=== PATIENT | male | born 1990 ===

== ENCOUNTER 2018-08-20 15:43 | Emergency (ER) | payer MEDICAID ==
[2018-08-20 16:37] VITALS: RESP 18; O2SAT 99
[2018-08-20] MEDS ORDERED: Oxycodone/Acetaminophen 5/325 mg Tab PO STA (17:41)
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
[2018-08-20 19:49] VITALS: BP 126/72; PULSE 72; TEMP 98.6
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
== END 2018-08-20 19:49 | disposition home or self-care (01) ==
LOC: ED 15:43
DX: S62.316A Displaced fracture of base of fifth metacarpal bone, right hand, initial encounter for closed fracture (principal); Y04.0XXA Assault by unarmed brawl or fight, initial encounter
CPT/HCPCS: 29125; 73110; 73130; 96372; 99285; J1885

== ENCOUNTER 2018-10-30 07:50 | Inpatient (IN) | payer MEDICAID ==
[2018-10-30 08:06] VITALS: BMI 25.4
--- NOTE | 2018-10-30 08:46 | ED PDOC ---
Arrival/HPI - General Chief Complaint: Abdominal Pain Time Seen by Provider: 10/30/18 08:08 Historian: Patient - History of Present Illness Narrative History of Present Illness (Text): 10/30/18 08:43 A 28 year old male presents to the emergency department for evaluation of bilateral side pain, abdominal pain, and low back pain. The patient notes that he has been seen by his PMD for his abdominal pain. He notes that he has been vomiting and having bright, red blood in stools. He is a smoker and drinks alcohol daily. The patient denies fevers, chills, headache, dizziness, chest pain, shortness of breath, dyspnea on exertion, cough, nausea, diarrhea, neck pain, urinary changes, or any other complaint. Time/Duration: Other (Today) Symptom Onset: Gradual Symptom Course: Unchanged Activities at Onset: Rest, Light Context: Home Past Medical History - Provider Review Nursing Documentation Reviewed: Yes - Infectious Disease Hx of Infectious Diseases: None - Cardiac Hx Cardiac Disorders: No - Pulmonary Hx Asthma: Yes - Psychiatric Hx Anxiety: Yes Hx Bipolar Disorder: Yes Hx Post Traumatic Stress Disorder: Yes Hx Schizophrenia: Yes Hx Substance Use: No Other/Comment: anti-social - Anesthesia Hx Anesthesia: No Family/Social History - Physician Review Nursing Documentation Reviewed: Yes Family/Social History: No Known Family HX Smoking Status: Current Some Days Smoker Hx Alcohol Use: Yes Hx Substance Use: No Allergies/Home Meds Allergies/Adverse Reactions: Allergies mayonnaise Allergy (Verified 10/30/18 08:07) ANAPHYLAXIS Penicillins Allergy (Verified 08/20/18 16:37) RASH seafoo Allergy (Uncoded 10/30/18 08:07) ANAPHYLAXIS Home Medications: Home Meds Medication Instructions Recorded Confirmed Ibuprofen [Motrin] 200 mg PO TID 10/30/18 10/30/18 buPROPion XL [Wellbutrin XL] 300 mg PO DAILY 10/30/18 10/30/18 Review of Systems - Physician Review All systems were reviewed & negative as marked: Yes - Review of Systems Constitutional: absent: Fevers Respiratory: absent: SOB, Cough Cardiovascular: absent: Chest Pain, ESPOSITO Gastrointestinal: Abdominal Pain, Vomiting, Hematochezia. absent: Diarrhea, Nausea Genitourinary Male: absent: Urinary Output Changes Musculoskeletal: Back Pain (and bilateral side pain). absent: Neck Pain Neurological: absent: Headache, Dizziness Physical Exam - Physical Exam Narrative Physical Exam (Text): 10/30/18 08:47 Gen: VS reviewed, alert, well developed, well nourished, mild distress. Intoxicated. ENT: normal pharynx. Eye: EOMI, PERRL. Neck: no JVD, supple, no adenopathy. CV: regular rate, regular rhythm, no rubs, no murmur, no gallops, S1, S2, pulses equal and strong. Pulm: no distress, clear to auscultation, no wheeze, no rhonchi, breath sounds equal, no rales. Abd: soft, nontender, no guarding, no rebound, no rigidity, normal bowel sounds. Ext: no edema. Back: Diffuse lower back tenderness. Skin: good color, no rash, no cyanosis. Psych: responds appropriately to questions, normal affect. Neuro: oriented x 3, CN2-12 intact grossly, motor intact, sensation intact. Vital Signs Reviewed: Yes Vital Signs Temp Pulse Resp BP Pulse Ox 10/30/18 07:50 99.7 F H 91 H 20 144/95 H 98 Temperature: Febrile Blood Pressure: Hypertensive Pulse: Tachycardic Respiratory Rate: Normal Appearance: Positive for: Well-Appearing, Non-Toxic, Comfortable Pain Distress: None Mental Status: Positive for: Alert and Oriented X 3 Medical Decision Making ED Course and Treatment: 10/30/18 08:48 Impression: A 28 year old male presents to the emergency department with a complaint of lower back, bilateral side, and abdominal pain. Plan: -- EKG -- Chest X-ray -- Urinalysis -- Gallbladder/ Pancreas Ultrasound -- Labs -- Reassess and disposition Prior Visits: Notes and results from previous visits were reviewed. Progress Notes: 10/30/18 11:[address] woodward to the hospitalist service. patient to be admitted for alcoholic pancreatitis. patient reports tremor withdrawal symptoms in the past but no seizures. CIWA score = 0. - Lab Interpretations I have reviewed the lab results: Yes - RAD Interpretation Narrative RAD Interpretations (Text): GALLBLADDER & PANCREAS ULTRASOUND Date Signed: 10/30/18 1041 Signed By: Kaila Mena MD IMPRESSION: Echogenic liver may be seen in setting of hepatic parenchymal disease or fatty infiltration. CHEST TWO VIEWS (PA/LAT) Date Signed: 10/30/18 1109 Signed By: Kaila Mena MD IMPRESSION: No focal consolidation. - EKG Interpretation EKG Interpretation (Text): 10/30/18 10:10 0906: nsr at 88 bpm, nml qrs, nml axis, prolonged qt Interpreted by ED Physician: Yes Type: 12 lead EKG - Scribe Statement The provider has reviewed the documentation as recorded by the Scribe Lyric Trujillo Provider Scribe Attestation: All medical record entries made by the Scribe were at my direction and personally dictated by me. I have reviewed the chart and agree that the record accurately reflects my personal performance of the history, physical exam, medical decision making, and the department course for this patient. I have also personally directed, reviewed, and agree with the discharge instructions and disposition. Disposition/Present on Arrival - Present on Arrival Any Indicators Present on Arrival: No History of DVT/PE: No History of Uncontrolled Diabetes: No Urinary Catheter: No History of Decub. Ulcer: No History Surgical Site Infection Following: None - Disposition Have Diagnosis and Disposition been Completed?: Yes Diagnosis: Alcoholic pancreatitis Disposition: HOSPITALIZED Disposition Time: 11:36 Patient Plan: Admission Condition: STABLE Forms: [employer] ([place])
[2018-10-30 09:03] LABS: BASO # 0.03 K/mm3 (0.0-2.0); BASO % 0.2 % (0.0-3.0); EOS # 0.1 (0.0-0.7); EOS % 0.9 % (1.5-5.0); GRAN # 11.5 (1.4-6.5); GRAN % 77.9 % (50.0-68.0); HEMOGLOBIN 14.7 g/dL (14.0-18.0); LYMPH # 1.1 (1.2-3.4); LYMPH % 7.7 % (22.0-35.0); MEAN CELL VOLUME 95.7 fl (80.0-105.0); MEAN CORPUSCULAR HEMOGLOBIN 33.6 pg (25.0-35.0); MEAN CORPUSCULAR HGB CONC 35.1 g/dl (31.0-37.0); MEAN PLATELET VOLUME 9.3 fl (7.0-11.0); MONO % 13.3 % (1.0-6.0); RBC 4.38 10^6/uL (3.5-6.1); RED CELL DISTRIBUTION WIDTH 12.9 % (11.5-14.5); WHITE BLOOD COUNT 14.8 10^3/uL (4.5-11.0)
[2018-10-30 09:12] LABS: INR 1.16; PARTIAL THROMBOPLASTIN TIME 29.2 Seconds (25.1-36.5); PROTHROMBIN TIME 13.4 SECONDS (9.4-12.5)
[2018-10-30 09:16] LABS: ALBUMIN 4.5 g/dL (3.0-4.8); ALT/SGPT 112 U/L (7-56); AST/SGOT 193 U/L (17-59); BLOOD UREA NITROGEN 4 mg/dL (7-21); CALCIUM 9.7 mg/dL (8.4-10.5); GFR NON-AFRICAN AMERICAN > 60
[2018-10-30 09:18] LABS: URINE BILIRUBIN NEGATIVE (NEGATIVE); URINE BLOOD NEGATIVE (NEGATIVE); URINE GLUCOSE (UA) NEGATIVE (NEGATIVE); URINE LEUKOCYTE ESTERASE NEGATIVE Leu/uL (NEGATIVE); URINE PROTEIN TRACE mg/dL (<30 mg/dL)
[2018-10-30 09:19] LABS: URINE APPEARANCE CLEAR (CLEAR); URINE COLOR YELLOW (YELLOW)
[2018-10-30 09:30] LABS: BARBITURATES, UR NEGATIVE (NEGATIVE); BENZODIAZEPINES, UR NEGATIVE (NEGATIVE); OPIATES, UR NEGATIVE (NEGATIVE); PHENCYCLIDINE, UR NEGATIVE (NEGATIVE)
[2018-10-30 09:44] LABS: URINE BACTERIA SMALL (NEG); URINE RBC NEGATIVE /hpf (0-2); URINE WBC 0 - 2 /hpf (0-6)
[2018-10-30 10:11] LABS: LIPASE 5385 U/L (23-300)
[2018-10-30] MEDS ORDERED: Multivitamin (MVI) 10 ML, Thiamine 100 MG, Folic Acid 1 MG in Sodium Chloride 0.9% 1,00... IV ONE (10:11)
--- NOTE | 2018-10-30 10:45 | US ---
Date of service: 10/30/2018 HISTORY: pain, ?gallstones COMPARISON: None available. TECHNIQUE: Sonographic evaluation of the right upper quadrant of the abdomen. FINDINGS: LIVER: Measures 17.6 cm in length. Echogenic liver may be seen in setting of hepatic parenchymal disease or fatty infiltration. No focal hepatic mass identified. The main portal vein appears patent with normal directional flow. No intrahepatic bile duct dilatation. GALLBLADDER: No gallstones. No gallbladder wall thickening or pericholecystic edema. Negative sonographic Dupont's sign as assessed by the emergency medicine physician. COMMON BILE DUCT: Measures 4 mm. PANCREAS: Not well-visualized. RIGHT KIDNEY: Measures approximately 13.4 x 5.2 x 6.1 cm. No obstructing calculus or hydronephrosis identified. AORTA: Limited visualization appears grossly unremarkable. IVC: Limited visualization appears grossly unremarkable. OTHER FINDINGS: None . IMPRESSION: Echogenic liver may be seen in setting of hepatic parenchymal disease or fatty infiltration.
--- NOTE | 2018-10-30 11:13 | RAD ---
HISTORY: pneumonia COMPARISON: None available. TECHNIQUE: Chest PA and lateral FINDINGS: LUNGS: No focal consolidation. Please note that chest x-ray has limited sensitivity for the detection of pulmonary masses. PLEURA: No significant pleural effusion identified. No definite pneumothorax . CARDIOVASCULAR: Heart size appears within normal limits. No significant atherosclerotic calcifications present. OSSEOUS STRUCTURES: Degenerative changes of the spine. VISUALIZED UPPER ABDOMEN: Elevation of the right hemidiaphragm. OTHER FINDINGS: None. IMPRESSION: No focal consolidation.
[2018-10-30] MEDS ORDERED: Magnesium Sulfate 2 gm/50 ml 2 GM/50 ML BAG IVPB ONE (11:43)
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
[2018-10-30] MEDS: buPROPion 300 mg/24 Hours XL Tab PO SCH (14:30)
[2018-10-30] MEDS: Pantoprazole 40 mg EC Tab PO SCH (16:16)
--- NOTE | 2018-10-30 18:35 | CARD ---
APPROVED REPORT Date of service: 10/30/2018 EKG Measurement Heart [id number] <Conclusion> Normal sinus rhythm Normal Electrocardiogram
[2018-10-30] MEDS: Morphine 2 mg/ml ISec IVP PRN ×2 (19:03→23:20)
[2018-10-31] MEDS: Morphine 2 mg/ml ISec IVP PRN (03:17)
[2018-10-31] MEDS: Pantoprazole 40 mg EC Tab PO SCH ×2 (06:23→15:11)
[2018-10-31 06:28] LABS: BASO # 0.05 K/mm3 (0.0-2.0); BASO % 0.5 % (0.0-3.0); EOS # 0.5 (0.0-0.7); EOS % 4.8 % (1.5-5.0); GRAN # 7.18 (1.4-6.5); GRAN % 73.3 % (50.0-68.0); HEMOGLOBIN 13.5 g/dL (14.0-18.0); LYMPH # 1.1 (1.2-3.4); LYMPH % 11.5 % (22.0-35.0); MEAN CELL VOLUME 97.8 fl (80.0-105.0); MEAN CORPUSCULAR HGB CONC 33.8 g/dl (31.0-37.0); MEAN PLATELET VOLUME 9.5 fl (7.0-11.0); MONO % 9.9 % (1.0-6.0); RBC 4.09 10^6/uL (3.5-6.1); RED CELL DISTRIBUTION WIDTH 13.3 % (11.5-14.5); WHITE BLOOD COUNT 9.8 10^3/uL (4.5-11.0)
[2018-10-31 07:19] LABS: ALBUMIN 3.8 g/dL (3.0-4.8); ALT/SGPT 92 U/L (7-56); AST/SGOT 125 U/L (17-59); BLOOD UREA NITROGEN 4 mg/dL (7-21); CALCIUM 9.2 mg/dL (8.4-10.5); GFR NON-AFRICAN AMERICAN > 60
[2018-10-31] MEDS ORDERED: Potassium Chloride 20 mEq ER Tab PO STA (08:19)
[2018-10-31] MEDS: buPROPion 300 mg/24 Hours XL Tab PO SCH (09:02)
--- NOTE | 2018-10-31 13:12 | CP.PCM.PN ---
<Gina Mehta - Last Filed: 10/31/18 13:13> Subjective - Date & Time of Evaluation Date of Evaluation: 10/31/18 Time of Evaluation: 10:10 - Subjective Subjective: Gina Mehta PGY1 Hospital Progress Note Patient seen and examined at bedside this morning. No acute events overnight. Patient states he doesn't like hospital food provided to him and is requesting alternatives. Patient will be advanced to full liquid diet this afternoon and further advanced to soft diet tonight if tolerating well. Denies any complaints at this time. Objective - Vital Signs/Intake and Output Vital Signs (last 24 hours): Temp Pulse Resp BP Pulse Ox 98.4 F 80 18 135/99 H 96 10/31/18 08:07 10/31/18 10:00 10/31/18 08:07 10/31/18 08:07 10/31/18 08:07 - Medications Medications: Current Medications Bupropion HCl (Wellbutrin Xl) 300 mg PO DAILY [facility] Last Admin: 10/31/18 09:02 Dose: 300 mg Lorazepam (Ativan) 1 mg IVP Q2H PRN; Protocol PRN Reason: Anxiety Last Admin: 10/31/18 13:01 Dose: 1 mg Lorazepam (Ativan) 1 mg IVP Q6H LING; Protocol Last Admin: 10/31/18 09:00 Dose: 1 mg Morphine Sulfate (Morphine) 2 mg IVP Q4H PRN PRN Reason: Pain, severe (8-10) Last Admin: 10/31/18 03:17 Dose: 2 mg Nicotine (Nicoderm Cq) 1 patch TD DAILY [facility] Last Admin: 10/31/18 09:09 Dose: Not Given Nystatin (Nystatin Oral Susp) 5 ml PO QID LING Ondansetron HCl (Zofran Inj) 4 mg IVP Q6H PRN PRN Reason: Nausea/Vomiting Pantoprazole Sodium (Protonix Ec Tab) 40 mg PO 0600,1600 [facility] Last Admin: 10/31/18 06:23 Dose: 40 mg Quetiapine Fumarate (Seroquel) 100 mg PO HS LING; Protocol Last Admin: 10/30/18 21:22 Dose: 100 mg - Labs Labs: 10/31/18 05:45 10/31/18 05:45 PT 13.4 SECONDS (9.4-12.5) H 10/30/18 08:50 INR 1.16 10/30/18 08:50 APTT 29.2 Seconds (25.1-36.5) 10/30/18 08:50 - Constitutional Appears: No Acute Distress - Head Exam Head Exam: ATRAUMATIC, NORMAL INSPECTION - Eye Exam Eye Exam: EOMI Pupil Exam: PERRL - ENT Exam ENT Exam: Mucous Membranes Moist Additional comments: white plaques in oral mucosa - Neck Exam Neck Exam: Normal Inspection - Respiratory Exam Respiratory Exam: Clear to Ausculation Bilateral. absent: Accessory Muscle Use, Wheezes, Respiratory Distress - Cardiovascular Exam Cardiovascular Exam: REGULAR RHYTHM, +S1, +S2. absent: Tachycardia - GI/Abdominal Exam GI & Abdominal Exam: Soft, Normal Bowel Sounds. absent: Firm, Guarding Additional comments: minimal epigastric tenderness appreciated - Extremities Exam Extremities Exam: Normal Inspection. absent: Calf Tenderness, Tenderness - Back Exam Back Exam: NORMAL INSPECTION - Neurological Exam Neurological Exam: Alert, Oriented x3 - Skin Skin Exam: Normal Color, Warm Assessment and Plan - Assessment and Plan (Free Text) Assessment: This is a 28 year old male with PMH of multiple psychiatric disorders including bipolar, anxiety, PTSD and anti-social personality disorder who presents with abdominal back and back pain. Alcoholic Pancreatitis -likely 2/2 ETOH pancreatitis -initial Lipase 5385 -LFT's, T.Bili, alk phos downtrending today -GB U/S shows echogenic liver in setting of hepatic parenchymal disease vs fatty infiltration -tacchycardic this AM -ativan prn and ling, CIWA -Seizure, aspiration and fall protocols -advancing diet is tolerated, full liquid this afternoon and soft diet tonight -Motrin or Morphine 2 q4 PRN for pain control -Zofran, morphine prn -ETOH cessation counseling Oral Trush -nystatin Leukocytosis -resolved -CXR and UA are negative Hypokalemia -repleted this morning, f/u labs Hypomagnesemia -repleted, f/u AM labs Psychiatric history -continue seroquel, wellbutrin Marijuana -UDS positive for cannabinoids -Cessation counseling Hx of Tobacco use -Nicotine patch -cessation counseling PPX -SCD and protonix Patient seen and case reviewed by attending, Dr. Thao. <Eddi Thao - Last Filed: 11/02/18 09:20> Objective - Vital Signs/Intake and Output Vital Signs (last 24 hours): Temp Pulse Resp BP Pulse Ox 98.9 F 80 20 137/99 H 97 11/01/18 08:45 11/01/18 10:00 11/01/18 08:45 11/01/18 08:45 11/01/18 08:45 - Labs Labs: 11/01/18 06:30 11/01/18 06:30 PT 13.4 SECONDS (9.4-12.5) H 10/30/18 08:50 INR 1.16 10/30/18 08:50 APTT 29.2 Seconds (25.1-36.5) 10/30/18 08:50 Attending/Attestation - Attestation I have personally seen and examined this patient.: Yes I have fully participated in the care of the patient.: Yes I have reviewed all pertinent clinical information, including history, physical exam and plan: Yes Notes (Text): 11/02/18 09:20 Medical record note made by the resident after discussion with my direction and input after the patient was personally seen and examined by me. I have reviewed the chart and agree that the record accurately reflects by personal performance of the history, physical exam, data review, and medical decision-making, in the course for the patient. I have also personally directed the plan of care.
[2018-10-31] MEDS: Nystatin 100,000 Units/ml Oral Susp 5 ml UD PO SCH ×3 (13:41→22:16)
[2018-10-31 17:00] VITALS: RESP 20
[2018-11-01] MEDS: Pantoprazole 40 mg EC Tab PO SCH (05:35)
[2018-11-01 07:16] LABS: BASO # 0.1 K/mm3 (0.0-2.0); EOS # 0.6 (0.0-0.7); EOS % 5.5 % (1.5-5.0); GRAN # 6.76 (1.4-6.5); HEMOGLOBIN 13.8 g/dL (14.0-18.0); LYMPH % 9.6 % (22.0-35.0); MEAN CELL VOLUME 98.1 fl (80.0-105.0); MEAN CORPUSCULAR HEMOGLOBIN 32.9 pg (25.0-35.0); MEAN CORPUSCULAR HGB CONC 33.6 g/dl (31.0-37.0); MEAN PLATELET VOLUME 9.3 fl (7.0-11.0); MONO # 1.6 (0.1-0.6); MONO % 15.9 % (1.0-6.0); RBC 4.19 10^6/uL (3.5-6.1); RED CELL DISTRIBUTION WIDTH 13.1 % (11.5-14.5); WHITE BLOOD COUNT 9.9 10^3/uL (4.5-11.0)
[2018-11-01 07:38] LABS: ALBUMIN 4.1 g/dL (3.0-4.8); ALT/SGPT 92 U/L (7-56); AST/SGOT 122 U/L (17-59); BLOOD UREA NITROGEN 4 mg/dL (7-21); CALCIUM 9.8 mg/dL (8.4-10.5); GFR NON-AFRICAN AMERICAN > 60
[2018-11-01 08:45] VITALS: BP 137/99; TEMP 98.9; O2SAT 97
[2018-11-01] MEDS: Nystatin 100,000 Units/ml Oral Susp 5 ml UD PO SCH (09:46)
[2018-11-01] MEDS: buPROPion 300 mg/24 Hours XL Tab PO SCH (09:46)
[2018-11-01 10:51] VITALS: PULSE 80
[2018-11-01] MEDS ORDERED: Potassium Chloride 20 mEq ER Tab PO STA (10:58)
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
== END 2018-11-01 17:55 | disposition home or self-care (01) | DRG 204 ==
LOC: ED 07:50 → ERH 11:45 → 3RSO 17:25
PROVIDERS: ADMIT Internal Medicine; ATTEND Internal Medicine
DX: K85.20 Alcohol induced acute pancreatitis without necrosis or infection (principal); E87.6 Hypokalemia; F20.9 Schizophrenia, unspecified; B37.0 Candidal stomatitis; E83.42 Hypomagnesemia; F17.210 Nicotine dependence, cigarettes, uncomplicated; F31.9 Bipolar disorder, unspecified; F43.10 Post-traumatic stress disorder, unspecified; F60.2 Antisocial personality disorder; J45.909 Unspecified asthma, uncomplicated; F10.10 Alcohol abuse, uncomplicated; Y90.2 Blood alcohol level of 40-59 mg/100 ml